=== PATIENT | male | born 2000 | race Caucasian/White ===

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

== ENCOUNTER 2022-02-17 22:43 | Inpatient (IN) | payer MEDICAID, SELFPAY ==
[2022-02-17 22:46] VITALS: BMI 21.9
[2022-02-17 22:50] VITALS: BP 136/71; PULSE 66; RESP 16; TEMP 37.1; O2SAT 99
--- NOTE | 2022-02-17 23:12 | W.ED.PSYCHS ---
HPI - Psych General: Chief Complaint: Psychiatric Symptoms Stated Complaint: laceration to neck Time Seen by Provider: 02/17/22 22:47 Source: patient Mode of arrival: ambulatory Limitations: no limitations History of Present Illness: 21-year-old male states that he had active suicidal ideations he states that he got an eyebrow razor and cut his throat he does have 2 superficial lacerations across to his throat and an attempt to kill himself he has no bleeding at this time denies any worsening proving factors. Associated symptoms: Reports depression and suicidal ideation Review of Systems Const: Denies: fever(s), chills, body aches or change in appetite Eyes: Denies: blurry vision or eye discomfort ENMT: Denies: throat pain or dental pain Card: Denies: chest pain Resp: Denies: dyspnea GI: Denies: abdominal pain, nausea, vomiting or diarrhea : Denies: dysuria Musc: Denies: neck pain or back pain Skin/Breast: Denies: rash Neuro: Denies: headache(s) Psych: Reports: depression and suicidal ideation Caleb/Lymph: Denies: easy bruising All/Imm: Denies: urticaria PFSH ED PFSH: Medical History History of asthma Surgical History No significant past surgical history Social History Smoking and tobacco status: never smoked Second hand smoke exposure: No Smoking risk assessment/counseling performed?: No Alcohol intake: never Desire information about alcohol rehabilitation?: No Counseling given: No Desire information about substance/drug rehabilitation?: No Counseling given: No Adopted: No Highest education level completed: 10th Grade Physical Exam Const: COMMON NORMALS: no acute distress, patient oriented x3 and healthy appearing HENMT: COMMON NORMALS: normocephalic and atraumatic HEAD & SCALP: normocephalic and atraumatic Eye: COMMON NORMALS: Equal, round and reactive pupils present and EOMs intact bilaterally PUPIL: Yes Equal, round and reactive pupils present Neck/C-Spine: COMMON NORMALS: full ROM and supple OTHER: 2 superficial lacerations to anterior neck Chest: COMMONS NORMALS: normal inspection of the chest and normal palpation of entire chest wall Resp: COMMON NORMALS: normal respiratory effort, No retractions, No use of accessory muscles and clear to auscultation bilaterally AUSCULTATION: clear to auscultation bilaterally Cardio: COMMON NORMALS: regular rate, regular rhythm and No murmurs present (Cardio) RATE: regular rate RHYTHM: regular rhythm GI: COMMON NORMALS: Normal to inspection, nondistended, normoactive bowel sounds present, Soft to palpation, non-tender and no masses PALPATION: Yes Soft to palpation Extremity: COMMON NORMALS: normal to inspection and full ROM Neuro: COMMON NORMALS: patient oriented x3, moves all extremities and no focal motor deficits Psych: COMMON NORMALS: mental status grossly normal, Normal thought process present and cooperative THOUGHT PROCESS: Normal thought process present Skin: COMMON NORMALS: no rashes or lesions noted and no wounds GENERAL SKIN EXAM: no rashes or lesions noted Course Vital Signs: Vital signs: Vital Signs Temperature 98.7 F 02/17/22 22:50 Pulse Rate 66 02/17/22 22:50 Respiratory Rate 16 02/17/22 22:50 Blood Pressure 136/71 02/17/22 22:50 Pulse Oximetry 99 02/17/22 22:50 [facility] - Psych Medical Decision Making Patient presents with a suicide attempt is laceration superficial does not require closure patient placed under 96-hour hold and will admit to psych schmid. Lab Data 02/17/22 23:15 02/17/22 23:15 Laboratory Results WBC 7.8 10^3/uL (4.5-13.0) 02/17/22 23:15 RBC 5.06 10^6/uL (4.1-5.3) 02/17/22 23:15 Hgb 16.0 g/dL (11.7-16.6) 02/17/22 23:15 Hct 48.2 % (42.0-52.0) 02/17/22 23:15 MCV 95.3 fl (80-94) H 02/17/22 23:15 MCH 31.6 pg (28.0-34.0) 02/17/22 23:15 MCHC 33.2 g/dL (30.0-36.0) 02/17/22 23:15 RDW 12.4 % (12.1-15.1) 02/17/22 23:15 Plt Count 282 10^3/cmm (130-400) 02/17/22 23:15 MPV 9.7 fL (7.4-10.4) 02/17/22 23:15 Neut % (Auto) 49.5 % 02/17/22 23:15 Lymph % (Auto) 40.0 % 02/17/22 23:15 [place] % (Auto) 7.0 % 02/17/22 23:15 Eos % (Auto) 2.7 % 02/17/22 23:15 Baso % (Auto) 0.5 % 02/17/22 23:15 Neut # (Auto) 3.87 10^3/uL (1.8-8.0) 02/17/22 23:15 Lymph # (Auto) 3.1 10^3/uL (1.5-6.5) 02/17/22 23:15 [place] # (Auto) 0.6 10^3/uL (0.2-0.9) 02/17/22 23:15 Eos # (Auto) 0.2 10^3/uL (0.0-0.8) 02/17/22 23:15 Baso # (Auto) 0.0 10^3/uL (0.0-0.1) 02/17/22 23:15 Nucleated RBC % (auto) 0 % 02/17/22 23:15 Nucleated RBCs # 0.0 /100WBC 02/17/22 23:15 Sodium 140 mmol/L (136-145) 02/17/22 23:15 Potassium 4.5 mmol/L (3.5-5.1) 02/17/22 23:15 Chloride 104 mmol/L (98-107) 02/17/22 23:15 Carbon Dioxide 27 mmol/L (22-29) 02/17/22 23:15 Anion Gap 13.5 (5-19) 02/17/22 23:15 BUN 15 mg/dL (6-20) 02/17/22 23:15 Creatinine 0.8 mg/dL (0.7-1.2) 02/17/22 23:15 GFR Calculation 124.5 mL/min (90-130) 02/17/22 23:15 Glucose 93 mg/dL (65-115) 02/17/22 23:15 Calculated Osmolality 291 mOsm/kg (285-295) 02/17/22 23:15 Calcium 9.7 mg/dL (8.5-10.5) 02/17/22 23:15 Total Bilirubin 0.6 mg/dL (0.15-1.2) 02/17/22 23:15 AST 18 U/L (0-40) 02/17/22 23:15 ALT 13 U/L (0-41) 02/17/22 23:15 Alkaline Phosphatase 53 U/L (40-130) 02/17/22 23:15 Total Protein 7.5 g/dL (6.6-8.7) 02/17/22 23:15 Albumin 4.8 g/dL (3.5-5.2) 02/17/22 23:15 Globulin 2.7 g/dL (1.3-4.6) 02/17/22 23:15 Salicylates < 0.3 mg/dL (3-10) L 02/17/22 23:15 Acetaminophen < 5.0 ug/mL (10-30) L 02/17/22 23:15 Ethyl Alcohol < 10 mg/dL (0-10) 02/17/22 23:15 Discharge Plan Discharge Patient Disposition: Admitted As Inpatient Admit Provider: Ho Sheldon Clinical Impression: Suicide attempt Condition: Stable Coding Level of Care Code ED Divorce Attorney for Chg Fwd Exam Comprehensive
[2022-02-17 23:47] LABS: Basophils % 0.5 %; Eosinophils # 0.2 10^3/uL (0.0-0.8); Eosinophils % 2.7 %; Hematocrit 48.2 % (42.0-52.0); Lymphocytes # 3.1 10^3/uL (1.5-6.5); Mean Corpuscular HGB Conc 33.2 g/dL (30.0-36.0); Mean Corpuscular Hemoglobin 31.6 pg (28.0-34.0); Mean Corpuscular Volume 95.3 fl (80-94); Mean Platelet Volume 9.7 fL (7.4-10.4); Monocytes # 0.6 10^3/uL (0.2-0.9); Neutrophils # 3.87 10^3/uL (1.8-8.0); Neutrophils % 49.5 %; Nucleated Red Blood Cells % 0 %; Platelet Count 282 10^3/cmm (130-400); Red Blood Count 5.06 10^6/uL (4.1-5.3); Red Cell Distribution Width 12.4 % (12.1-15.1); White Blood Count 7.8 10^3/uL (4.5-13.0)
[2022-02-17 23:57] LABS: Alanine Aminotransferase 13 U/L (0-41); Albumin Level 4.8 g/dL (3.5-5.2); Alkaline Phosphatase 53 U/L (40-130); Anion Gap 13.5 (5-19); Aspartate Amino Transferase 18 U/L (0-40); Blood Urea Nitrogen 15 mg/dL (6-20); Calcium 9.7 mg/dL (8.5-10.5); Carbon Dioxide 27 mmol/L (22-29); Chloride 104 mmol/L (98-107); Globulin 2.7 g/dL (1.3-4.6); Glomerular Filtration Rate 124.5 mL/min (90-130); Glucose 93 mg/dL (65-115); Osmolality Calculated 291 mOsm/kg (285-295); Potassium 4.5 mmol/L (3.5-5.1); Sodium 140 mmol/L (136-145); Total Bilirubin 0.6 mg/dL (0.15-1.2); Total Protein 7.5 g/dL (6.6-8.7)
[2022-02-17 23:58] LABS: Acetaminophen < 5.0 ug/mL (10-30); Alcohol Level < 10 mg/dL (0-10); Salicylate < 0.3 mg/dL (3-10)
[2022-02-18 00:55] LABS: Amphetamines Screen Urine Negative (Negative); Barbiturates Screen Urine Negative (Negative); Benzodiazepines Screen Urine Negative (Negative); Cocaine Screen Urine Negative (Negative); Opiate Screen Urine Negative (Negative); PCP Screen Urine Negative (Negative); THC Screen Urine Positive (Negative)
[2022-02-18 01:13] VITALS: BP 124/79; PULSE 66; RESP 18; TEMP 36.6; O2SAT 100
[2022-02-18] MEDS: trazodone 50 mg Tablet PO (02:21)
[2022-02-18 06:00] VITALS: RESP 18
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
--- NOTE | 2022-02-18 09:30 | PC.OT ---
OT EVALUATION ATTEMPTED. PATIENT DOES NOT AWAKEN TO NAME DESPITE 2 ATTEMPTS.
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
[2022-02-18 14:00] VITALS: BP 91/53; PULSE 86; RESP 18; TEMP 36.8; O2SAT 98
[2022-02-18] MEDS: blistex lip oint 7 gm Tube 1 APPLIC TOPICAL (16:53)
[2022-02-18] MEDS: quetiapine XR (24HR) 50 mg Tablet PO (20:20)
[2022-02-18 20:21] VITALS: RESP 16
[2022-02-19 06:00] VITALS: RESP 18
[2022-02-19] MEDS: neomycin-poly-bacitracin oint 28 gm 1 APPLIC TOPICAL ×2 (11:37→17:24)
[2022-02-19 14:00] VITALS: BP 107/74; PULSE 74; RESP 17; TEMP 36.6; O2SAT 98
--- NOTE | 2022-02-19 18:11 | W.PM.NPUPNS ---
Subjective NPU Subjective: Patient is a 21-year-old white male with a history of bipolar 2 disorder, and borderline personality traits admitted with depressed mood and suicidal ideation after cutting his neck superficially with a an eyebrow razor. Patient reported no suicidal thoughts at this time. He had endorsed depressed mood. He had reported a past history of brief 1 to 2 days of hypomania but reported a greater period of time spent with depressed mood. He had reported low energy and lack of motivation. He had reported difficulties with concentration and recent loss of appetite. He reported some difficulties with sleep last night. He reported having struggled with maintaining compliance with Prozac as he had reported no improvement after taking Prozac for 6 weeks. He was willing to consider individual therapy. He had endorsed some feelings of abandonment and reported having a lack of support regarding his mental illness. Mental Status Exam MSE Comments: This is a short, well nourished, well developed white adolescent man with fair grooming and good eye contact. No abnormal Involuntary motor movements tics or tremors were appreciated. There was clear evidence of superficial cuts and abrasions on his neck that appeared to be healing. He was cooperative with exam in no acute distress. Speech was slightly decreased in rate and volume. Mood described as depressed. His affect was restricted in range and mood-congruent. Thought process: linear logical and goal directed. Thought content: He endorsed no suicidal ideation today He denied homicidal ideation. He did not appear to be responding to internal stimuli. There was no clear evidence of delusional thinking. Attention and concentration are intact and memory appeared reliable but none were formally tested. He is alert and oriented three times. Insight is poor. Judgment is poor. Impulse control was poor. Vitals/I&O/Wt Last Vital Signs Temp 98 F 02/19/22 14:00 Pulse 74 02/19/22 14:00 Resp 17 02/19/22 14:00 BP 107/74 02/19/22 14:00 Pulse Ox 98 02/19/22 14:00 O2 Del Method 02/19/22 14:00 Weight last 48 hrs Weight 63.503 kg Data NPU 02/17/22 23:15 02/17/22 23:15 A&P Assessment and plan (1) Bipolar 2 disorder: (2) Suicide attempt: (3) Knee injury: Qualifiers: Encounter type: initial encounter Laterality: left Qualified Code(s): S89.92XA - Unspecified injury of left lower leg, initial encounter (4) Depression: Qualifiers: Depression Type: major depressive disorder Major depression recurrence: single episode Active/Remission status: currently active Major depression episode severity: severe Psychotic features: without psychotic features Qualified Code(s): F32.2 - Major depressive disorder, single episode, severe without psychotic features (5) Anxiety: (6) Borderline personality disorder: Plan This is an 21 year old adolescent man with a history of trauma, depression, hypomania and genetic loading for bipolar disorder who presents after a recently cutting neck multiple times with eyebrow razor. 1. Increase Seroquel xr to 100mg to target bipolar depression. Add Wellbutrin xl 150mg in am to target depression. 2. Encourage individual, group and milieu therapy 3. Continue q-15 minute check for safety 4. Will attempt to gather collateral information. Involuntary Hold Information 96 Hour Hold: 96 Hour Involuntary Admission: Yes 96 Hour Hold Ending Date: 12/22/21 96 Hour Hold Ending Time: 22:20 Attestations NPU Medical Necessity Statement*: Inpatient hospitalization is medically necessary and the clinically appropriate intervention at this time. We will monitor medications and make changes as indicated with likely length of stay is 4-6 days. 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
[2022-02-19] MEDS: quetiapine XR (24HR) 50 mg Tablet 100 MG PO (20:07)
[2022-02-19 20:23] VITALS: PULSE 98; RESP 16; TEMP 36.8; O2SAT 99
[2022-02-19] MEDS: trazodone 50 mg Tablet PO (21:19)
[2022-02-20 06:00] VITALS: RESP 18
[2022-02-20] MEDS: buPROPion XL (24 HR) 150 mg Tablet PO (08:10)
[2022-02-20] MEDS: neomycin-poly-bacitracin oint 28 gm 1 APPLIC TOPICAL ×2 (08:57→17:45)
[2022-02-20 14:00] VITALS: BP 108/56; PULSE 78; RESP 17; TEMP 36.5; O2SAT 99
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
--- NOTE | 2022-02-20 18:42 | P.NPUPN_ITS ---
Subjective NPU Subjective: Patient is a 21-year-old white male with a history of bipolar 2 disorder, and borderline personality traits admitted with depressed mood and suicidal ideation after cutting his neck superficially with a an eyebrow razor. He minimized any thoughts of hurting himself today. He had reported feeling better. He states that he has a place to return home and would like to return to work. He had endorsed no feelings of hopelessness today. He reported no feelings of rejection and was compliant on the milieu. He reported improved sleep on the Seroquel and reported no manic symptoms or hypomanic symptoms currently. He reports interest in considering outpatient psychiatric medication management and psychotherapy. He reported no thoughts of self injury. Mental Status Exam MSE Comments: This is a short, well nourished, well developed white adolescent man with fair grooming and good eye contact. No abnormal Involuntary motor movements tics or tremors were appreciated. There was clear evidence of superficial cuts and abrasions on his neck that appeared to be healing as well as old healed scars in his wrist. He was cooperative with exam in no acute distress. Speech was normal in rate, rhythm and volume. Mood described as better. His affect was less restricted in range and mood-congruent. Thought process: linear logical and goal directed. Thought content: He endorsed no suicidal ideation today He denied homicidal ideation. He did not appear to be responding to internal stimuli. There was no clear evidence of delusional thinking. Attention and concentration are intact and memory appeared reliable but none were formally tested. He is alert and oriented three times. Insight is poor. Judgment is poor. Impulse control was poor. Vitals/I&O/Wt Last Vital Signs Temp 97.7 F 02/20/22 14:00 Pulse 78 02/20/22 14:00 Resp 17 02/20/22 14:00 BP 108/56 02/20/22 14:00 Pulse Ox 99 02/20/22 14:00 O2 Del Method 02/19/22 14:00 Data NPU 02/17/22 23:15 02/17/22 23:15 A&P Assessment and plan (1) Bipolar 2 disorder: (2) Suicide attempt: (3) Knee injury: Qualifiers: Encounter type: initial encounter Laterality: left Qualified Code(s): S89.92XA - Unspecified injury of left lower leg, initial encounter (4) Depression: Qualifiers: Depression Type: major depressive disorder Major depression recurrence: single episode Active/Remission status: currently active Major depression episode severity: severe Psychotic features: without psychotic features Qualified Code(s): F32.2 - Major depressive disorder, single episode, severe without psychotic features (5) Anxiety: (6) Borderline personality disorder: Plan This is an 21 year old adolescent man with a history of trauma, depression, hypomania and genetic loading for bipolar disorder who presents after a recently cutting neck multiple times with eyebrow razor. 1. Increase Seroquel xr to 150mg to target bipolar depression. Continue Wellbutrin xl 150mg in am to target depression. 2. Encourage individual, group and milieu therapy 3. Continue q-15 minute check for safety 4. Will attempt to gather collateral information. Involuntary Hold Information 96 Hour Hold: 96 Hour Involuntary Admission: Yes 96 Hour Hold Ending Date: 12/22/21 96 Hour Hold Ending Time: 22:20 Attestations NPU Medical Necessity Statement*: Inpatient hospitalization is medically necessary and the clinically appropriate intervention at this time. We will monitor medications and make changes as indicated with likely length of stay is 1-2 days. Coding Level of Care Code Established Pt Acute Student Outreach Coordinator for [facility] Patient Type Established History Problem Focused Exam Problem Focused Medical Decision Making Straight Forward Diagnoses Bipolar 2 disorder F31.81 Suicide attempt T14.91XA Knee injury S89.92XA Encounter type: initial encounter Laterality: left Depression F32.2 Depression Type: major depressive disorder Major depression recurrence: single episode Active/Remission status: currently active Major depression episode severity: severe Psychotic features: without psychotic features Anxiety F41.9 Borderline personality disorder F60.3
[2022-02-20 19:24] VITALS: BP 126/73; PULSE 86; RESP 16; TEMP 36.7; O2SAT 99
[2022-02-20] MEDS: quetiapine XR (24HR) 50 mg Tablet 100 MG PO (19:42)
[2022-02-20] MEDS: trazodone 50 mg Tablet PO (21:20)
[2022-02-21 06:00] VITALS: RESP 16
[2022-02-21] MEDS: buPROPion XL (24 HR) 150 mg Tablet PO (08:23)
[2022-02-21] MEDS: neomycin-poly-bacitracin oint 28 gm 1 APPLIC TOPICAL (08:24)
[2022-02-21 11:30] VITALS: BP 126/73; PULSE 86; RESP 16; TEMP 36.7; O2SAT 99
== END 2022-02-21 13:34 | disposition home or self-care (01) | DRG 885 ==
LOC: ER 23:20 → NP 23:59
PROVIDERS: Admitting Provider Psychiatry & Neurology Psychiatry; Emergency Provider Emergency Medicine; PCP Pediatrics Adolescent Medicine; Visit Provider Psychiatry & Neurology Psychiatry
DX: F31.81 Bipolar II disorder (principal); R45.851 Suicidal ideations; Z81.8 Family history of other mental and behavioral disorders; F41.9 Anxiety disorder, unspecified; F60.3 Borderline personality disorder
CPT/HCPCS: 80053; 80306; 80307; 85025; 97150; 97165; 99285